=== PATIENT | female | born 1995 | race American Indian/Alaskan Native ===

== ENCOUNTER 2018-12-06 16:08 | Emergency (ER) | payer SELFPAY ==
[2018-12-06] MEDS ORDERED: NACL 0.9% 1000 ML 1,000 ML IV ONE (16:25)
[2018-12-06] MEDS ORDERED: ZOFRAN IV ONE (16:25)
[2018-12-06] MEDS ORDERED: MORPHINE IV ONE (16:25)
--- NOTE | 2018-12-06 16:38 | Emergency Department Report ---
ED Female HPI - General Stated complaint: 13 WEEKS Time Seen by Provider: 12/06/18 16:21 - History of Present Illness Initial comments: Ms. Billingsley is a 23 yo who is approximately 13 weeks according to LMP September. She had the sudden onset of vaginal bleeding and pelvic cramping. Severe suprapubic pain. No radiation. Constant. Complaint: vaginal bleeding -: Sudden, minutes(s) (30) Severity: severe Quality: sharp Consistency: constant Improves with: none Worsens with: none Are you Now?: Yes Associated Symptoms: vaginal bleeding - Related Data Sexually active: Yes : 1 Para: 0 A: 0 Previous Rx's Medication Instructions Recorded Last Taken Type Ibuprofen [Motrin 800 MG tab] 800 mg PO Q8HR PRN #15 tablet 12/06/18 Unknown Rx Allergies Allergy/AdvReac Type Severity Reaction Status Date / Time No Known Allergies Allergy Verified 12/06/18 16:25 ED Review of Systems ROS: Stated complaint: 13 WEEKS Other details as noted in HPI Comment: All other systems reviewed and negative Constitutional: denies: fever, malaise Gastrointestinal: abdominal pain Genitourinary: denies: urgency ED Past Medical Hx - Past Medical History Previous Medical History?: No - Surgical History Past Surgical History?: No - Social History Smoking Status: Current Every Day Smoker - Medications Home Medications: Home Medications Medication Instructions Recorded Confirmed Last Taken Type Ibuprofen [Motrin 800 MG tab] 800 mg PO Q8HR PRN #15 tablet 12/06/18 Unknown Rx ED Physical Exam - General General appearance: alert, in no apparent distress, other (appears in pain) - Head Head exam: Present: atraumatic, normocephalic - Eye Eye exam: Present: normal appearance - ENT ENT exam: Present: mucous membranes moist - Neck Neck exam: Present: normal inspection, full ROM - Respiratory Respiratory exam: Present: normal lung sounds bilaterally. Absent: respiratory distress, wheezes, rales, rhonchi - Cardiovascular Cardiovascular Exam: Present: regular rate, normal rhythm, normal heart sounds. Absent: systolic murmur, diastolic murmur, rubs, gallop - GI/Abdominal GI/Abdominal exam: Present: soft, normal bowel sounds. Absent: distended, tenderness, guarding, rebound - Extremities Exam Extremities exam: Present: normal inspection - Back Exam Back exam: Present: normal inspection - Neurological Exam Neurological exam: Present: alert, oriented X3 - Psychiatric Psychiatric exam: Present: normal affect, normal mood - Skin Skin exam: Present: warm, dry, intact, normal color. Absent: rash ED Course Vital Signs 12/06/18 12/06/18 16:25 17:06 Temperature 98.4 F 98 F Pulse Rate 56 L 64 Respiratory 16 16 Rate Blood Pressure 144/84 Blood Pressure 125/94 [Right] O2 Sat by Pulse 99 98 Oximetry ED Medical Decision Making - Lab Data Result diagrams: 12/06/18 17:07 12/06/18 17:07 Laboratory Results - last 24 hr 12/06/18 12/06/18 12/06/18 17:05 17:07 17:07 WBC 7.2 RBC 4.91 Hgb 14.0 Hct 41.5 MCV 85 MCH 29 MCHC 34 RDW 14.7 Plt Count 335 Lymph % (Auto) 30.2 [place] % (Auto) 5.8 Eos % (Auto) 5.7 H Baso % (Auto) 0.5 Lymph # 2.2 [place] # 0.4 Eos # 0.4 Baso # 0.0 Seg Neutrophils % 57.8 Seg Neutrophils # 4.2 Sodium 138 Potassium 4.7 Chloride 101.2 Carbon Dioxide 23 Anion Gap 19 BUN 10 Creatinine 0.6 L Estimated GFR > 60 BUN/Creatinine Ratio 17 Glucose 83 Calcium 9.3 HCG, Quant Blood Type A POSITIVE 12/06/18 17:07 WBC RBC Hgb Hct MCV MCH MCHC RDW Plt Count Lymph % (Auto) [place] % (Auto) Eos % (Auto) Baso % (Auto) Lymph # [place] # Eos # Baso # Seg Neutrophils % Seg Neutrophils # Sodium Potassium Chloride Carbon Dioxide Anion Gap BUN Creatinine Estimated GFR BUN/Creatinine Ratio Glucose Calcium HCG, Quant < 2 Blood Type - Radiology Data Radiology results: image reviewed - Medical Decision Making Ms. Billingsley presents with dysmenorrhea. No evidence of according to ultrasound or serum studies. dc'd home with prescription for Ibuprofen Critical care attestation.: If time is entered above; I have spent that time in minutes in the direct care of this critically ill patient, excluding procedure time. ED Disposition Clinical Impression: Dysmenorrhea Disposition: DC-01 TO HOME OR SELFCARE Is pt being admited?: No Does the pt Need Aspirin: No Condition: Stable Instructions: Dysmenorrhea (ED) Prescriptions: Ibuprofen [Motrin 800 MG tab] 800 mg PO Q8HR PRN #15 tablet PRN Reason: Pain , Severe (7-10)
[2018-12-06 17:14] VITALS: BP 125/94
[2018-12-06 17:24] LABS: Basophils % (Auto) 0.5 % (0.0-1.8); Eosinophils # (Auto) 0.4 K/mm3 (0.0-0.4); Eosinophils % (Auto) 5.7 % (0.0-4.3); Hematocrit 41.5 % (30.3-42.9); Lymphocytes # (Auto) 2.2 K/mm3 (1.2-5.4); Lymphocytes % (Auto) 30.2 % (13.4-35.0); Mean Corpuscular HGB Conc 34 % (30-34); Mean Corpuscular Volume 85 fl (79-97); Monocytes # (Auto) 0.4 K/mm3 (0.0-0.8); Monocytes % (Auto) 5.8 % (0.0-7.3); Platelet Count 335 K/mm3 (140-440); Red Blood Count 4.91 M/mm3 (3.65-5.03); Red Cell Distribution Width 14.7 % (13.2-15.2)
[2018-12-06 17:55] LABS: BUN/Creatinine Ratio 17; Blood Urea Nitrogen 10 mg/dL (7-17); Calcium 9.3 mg/dL (8.4-10.2); Hemolysis Index 99
--- NOTE | 2018-12-06 20:27 | Ultrasound Report ---
PROCEDURE: US PELVIC COMPLETE TECHNIQUE: Transabdominal and endovaginal pelvic ultrasound HISTORY: Vaginal bleeding COMPARISONS: No priors FINDINGS: The uterus measures approximately 10.7 cm longitudinally. The endometrium somewhat poorly defined and mildly thickened measuring approximately 1.1 cm in diamet er. Poor definition of the interface between the endometrium and myometrium and mild heterogeneity of the myometrium, nonspecific and may be seen with adenomyosis. No discrete fibroids are identified. Right ovary is normal in contour and echotexture. Left ovary normal in contour. Follicular cyst in the left ovary measuring approximately 1 cm. Ovarian vascularity demonstrated bilaterally. No fluid is seen in the pelvic cul-de-sac. No evidence of adnexal masses. IMPRESSION: Mildly thickened endometrium with poor definition of the interface between the endometrium and myomet rium and mild heterogeneity of the myometrium, nonspecific and which may reflect adenomyosis. Consider further evaluation with MRI. No discrete fibroids are identified. 1 cm follicular cyst in the left ovary. No adnexal masses.. This document is electronically signed by Wander Figueroa MD., December 06 2018 08:24:45 PM ET
== END 2018-12-06 20:37 | disposition home or self-care (01) ==
LOC: ED 16:08
DX: O20.9 Hemorrhage in early pregnancy, unspecified (principal); N94.6 Dysmenorrhea, unspecified; F17.200 Nicotine dependence, unspecified, uncomplicated; Z3A.12 12 weeks gestation of pregnancy
CPT/HCPCS: 36415; 76830; 76856; 80048; 84702; 85025; 86900; 86901; 96374; 96375; 99285; J2270; J2405; J7030

== ENCOUNTER 2019-05-07 14:21 | Emergency (ER) | payer SELFPAY ==
--- NOTE | 2019-05-07 15:23 | Emergency Department Report ---
Blank Doc - Documentation Documentation: 23-year-old female that presents with abdominal pain with n/v. This initial assessment/diagnostic orders/clinical plan/treatment(s) is/are subject to change based on patient's health status, clinical progression and re- assessment by fellow clinical providers in the ED. Further treatment and workup at subsequent clinical providers discretion. Patient/guardians urged not to elope from the ED as their condition may be serious if not clinically assessed and managed. Initial orders include: 1- Patient sent to [facility] for further evaluation and treatment 2- labs 3- UA
[2019-05-07 15:25] VITALS: BP 118/65
[2019-05-07 16:06] LABS: Basophils % (Auto) 0.6 % (0.0-1.8); Eosinophils # (Auto) 0.4 K/mm3 (0.0-0.4); Eosinophils % (Auto) 6.9 % (0.0-4.3); Hematocrit 36.6 % (30.3-42.9); Hemoglobin 11.7 gm/dl (10.1-14.3); Lymphocytes # (Auto) 1.7 K/mm3 (1.2-5.4); Lymphocytes % (Auto) 29.4 % (13.4-35.0); Mean Corpuscular HGB Conc 32 % (30-34); Mean Corpuscular Volume 83 fl (79-97); Monocytes # (Auto) 0.5 K/mm3 (0.0-0.8); Monocytes % (Auto) 8.2 % (0.0-7.3); Platelet Count 375 K/mm3 (140-440); Red Cell Distribution Width 15.6 % (13.2-15.2)
[2019-05-07 16:27] LABS: Alanine Aminotransferase 7 units/L (7-56); Albumin 3.9 g/dL (3.9-5); BUN/Creatinine Ratio 18; Blood Urea Nitrogen 14 mg/dL (7-17); Calcium 9.2 mg/dL (8.4-10.2); Hemolysis Index 31
== END 2019-05-07 18:16 | disposition left against medical advice (07) ==
LOC: ED 14:21
DX: R11.2 Nausea with vomiting, unspecified (principal); Z53.21 Procedure and treatment not carried out due to patient leaving prior to being seen by health care provider
CPT/HCPCS: 36415; 80053; 83690; 84703; 85025

== ENCOUNTER 2020-08-25 15:09 | Emergency (ER) | payer SELFPAY | END 2020-08-25 16:55 | disposition left against medical advice (07) | LOC: ED 15:09 | DX: Z00.8 Encounter for other general examination (principal); Z53.21 Procedure and treatment not carried out due to patient leaving prior to being seen by health care provider ==

== ENCOUNTER 2020-12-31 15:34 | Emergency (ER) | payer SELFPAY ==
[2020-12-31 17:05] VITALS: BP 132/72
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
[2020-12-31 18:56] LABS: Basophils % (Auto) 0.3 % (0.0-1.8); Eosinophils # (Auto) 0.8 K/mm3 (0.0-0.4); Eosinophils % (Auto) 10.6 % (0.0-4.3); Hematocrit 30.1 % (30.3-42.9); Hemoglobin 9.6 gm/dl (10.1-14.3); Lymphocytes # (Auto) 2.1 K/mm3 (1.2-5.4); Lymphocytes % (Auto) 28.1 % (13.4-35.0); Mean Corpuscular HGB Conc 32 % (30-34); Mean Corpuscular Volume 79 fl (79-97); Monocytes # (Auto) 0.5 K/mm3 (0.0-0.8); Monocytes % (Auto) 6.8 % (0.0-7.3); Platelet Count 347 K/mm3 (140-440)
[2020-12-31 19:13] LABS: Alanine Aminotransferase 12 units/L (7-56); Albumin 3.6 g/dL (3.9-5); BUN/Creatinine Ratio 21; Blood Urea Nitrogen 17 mg/dL (7-17); Calcium 9.3 mg/dL (8.4-10.2); Hemolysis Index 34
== END 2020-12-31 17:09 | disposition left against medical advice (07) ==
LOC: ED 15:34
DX: H57.89 Other specified disorders of eye and adnexa (principal); Z53.21 Procedure and treatment not carried out due to patient leaving prior to being seen by health care provider
CPT/HCPCS: 36415; 80053; 80320; 83690; 84703; 85025; G0480

== ENCOUNTER 2021-08-12 20:38 | Inpatient (IN) | payer SELFPAY ==
[2021-08-12] MEDS ORDERED: SODIUM CHLORIDE 0.9% 1000 ML 1,000 ML IV ONE (22:09)
--- NOTE | 2021-08-12 22:11 | Emergency Department Report ---
HPI - General Chief Complaint: Vaginal Bleeding Time Seen by Provider: 08/12/21 21:44 - HPI HPI: 26-year-old female with no known past medical history presents complaining of 1 week of suprapubic abdominal pain and distension as well as 2 days of i ntense vaginal bleeding. The patient says she is unsure whether she is . Her last menstrual period was approximately 1 month ago. She is sexually active and uses barrier protection but not all the time. She states that approximate 1 week ago she began to experience dull suprapubic abdominal pain which became constant over the past week and with occasional associated cramping. She also says over that period of time her abdomen has become significantly more distended. For the past 2 days she has had vaginal bleeding and says she is using approximately 1 pad per hour. She states that she normally does not have cramps associated with her menstrual period. Patient says she took 8 Tylenol pills over the course of the day today and has been taking "a lot" of Tylenol over the past week due to the abdominal pain. She does not know the dose and is unable to provide account of when these pills were taken. She denies any associated headache, vision change, neck pain, chest pain, shortness of breath, cough, fever, chills, nausea/vomiting, dysuria, diarrhea, constipation, dark tarry stools, or any other associated complaints. ED Past Medical Hx - Past Medical History Previous Medical History?: No - Social History Smoking Status: Never Smoker Substance Use Type: None - Medications Home Medications: Home Medications Medication Instructions Recorded Confirmed Last Taken Type Sulfamethoxazole/Trimethoprim 1 each PO BID #10 tablet 11/29/19 08/14/21 Unknown Rx [Bactrim DS TAB] ED Review of Systems ROS: Stated complaint: ABD PAIN Other details as noted in HPI Comment: All other systems reviewed and negative Constitutional: denies: chills, fever Eyes: denies: eye pain, vision change ENT: denies: throat pain, congestion Respiratory: denies: cough, shortness of breath Cardiovascular: denies: chest pain, palpitations, syncope Gastrointestinal: abdominal pain. denies: nausea, vomiting, diarrhea, constipation Genitourinary: other (vaginal bleeding). denies: dysuria, frequency, discharge Musculoskeletal: denies: back pain, arthralgia Skin: denies: rash, lesions Neurological: denies: headache, weakness, numbness, paresthesias Hematological/Lymphatic: denies: easy bleeding Physical Exam - Physical Exam Vital Signs: Vital Signs 08/12/21 21:16 Temperature 98.8 F Pulse Rate 94 H Respiratory 16 Rate Blood Pressure 117/72 [Right] O2 Sat by Pulse 100 Oximetry Physical Exam: GENERAL: Well developed and well nourished. Disheveled. In mild distress secondary to pain. HEAD: Normocephalic. No obvious signs of trauma. ENT: Dry mucous membranes. EYES: Extraocular movements are intact. Pupils are equal round and reactive to light bilaterally NECK: Supple. Full ROM is intact. Trachea is midline. LUNGS: Nonlabored breathing. Equal chest rise bilaterally. Clear to auscultation bilaterally. CARDIOVASCULAR: Regular rate and rhythm. No murmurs or rubs. VASCULAR: Cap refill < 2 seconds ABDOMEN: Abdomen is significantly distended but soft. There is tenderness noted on palpation of the right upper quadrant > right lower quadrant without guarding or rebound tenderness. There is also suprapubic tenderness noted. GENITOURINARY: Pelvic exam performed with medic Wendi present as tire man. External genitalia are normal in appearance. No lesions/rashes. There is scant blood and clots noted in the posterior fornix. No lacerations noted. No significant discharge. The os is closed and there is very scant bleeding coming from the os. Bimanual exam reveals no cervical motion tenderness. There are no significant adnexal masses or tenderness. SKIN: Skin is warm and dry NEURO: Patient is awake, alert, and oriented. regional economic liaison II-XII grossly intact. No focal deficits. Normal motor and sensory exam throughout. Normal speech. MUSCULOSKELETAL: No obvious deformities. No significant tenderness. Normal ROM throughout. BACK/SPINE: No midline tenderness or step-offs of the C/T/L spine. No costovertebral angle tenderness. ED Course Vital Signs 08/12/21 21:16 Temperature 98.8 F Pulse Rate 94 H Respiratory 16 Rate Blood Pressure 117/72 [Right] O2 Sat by Pulse 100 Oximetry ED Medical Decision Making - Lab Data Result diagrams: 08/12/21 21:55 08/12/21 21:55 Labs 08/12/21 08/12/21 08/12/21 21:55 21:55 21:55 WBC 19.2 H RBC 3.92 Hgb 9.5 L Hct 30.8 MCV 79 MCH 24 L MCHC 31 RDW 15.9 H Plt Count 501 H Lymph % (Auto) 6.4 L [place] % (Auto) 7.8 H Eos % (Auto) 0.1 Baso % (Auto) 0.2 Lymph # (Auto) 1.2 [place] # (Auto) 1.5 H Eos # (Auto) 0.0 Baso # (Auto) 0.0 Seg Neutrophils % 85.5 H Seg Neutrophils # 16.5 H PT INR APTT Sodium 128 L Potassium 4.0 Chloride 91.7 L Carbon Dioxide 19 L Anion Gap 21 BUN 10 Creatinine 0.7 Estimated GFR > 60 BUN/Creatinine Ratio 14 Glucose 99 Calcium 8.4 Magnesium Total Bilirubin Direct Bilirubin Indirect Bilirubin AST ALT Alkaline Phosphatase Troponin T NT-Pro-B Natriuret Pep Total Protein Albumin Albumin/Globulin Ratio Lipase HCG, Quant < 2 Salicylates Acetaminophen Plasma/Serum Alcohol 08/12/21 08/12/21 08/12/21 22:19 22:19 22:19 WBC RBC Hgb Hct MCV MCH MCHC RDW Plt Count Lymph % (Auto) [place] % (Auto) Eos % (Auto) Baso % (Auto) Lymph # (Auto) [place] # (Auto) Eos # (Auto) Baso # (Auto) Seg Neutrophils % Seg Neutrophils # PT 15.6 H INR 1.12 APTT 41.0 H Sodium Potassium Chloride Carbon Dioxide Anion Gap BUN Creatinine Estimated GFR BUN/Creatinine Ratio Glucose Calcium Magnesium Total Bilirubin 0.50 Direct Bilirubin < 0.2 Indirect Bilirubin 0.3 AST 20 ALT 8 Alkaline Phosphatase 87 Troponin T NT-Pro-B Natriuret Pep Total Protein 8.7 H Albumin 3.9 Albumin/Globulin Ratio 0.8 Lipase 13 HCG, Quant Salicylates < 0.3 L Acetaminophen Plasma/Serum Alcohol 08/12/21 08/12/21 08/13/21 22:19 22:19 00:43 WBC RBC Hgb Hct MCV MCH MCHC RDW Plt Count Lymph % (Auto) [place] % (Auto) Eos % (Auto) Baso % (Auto) Lymph # (Auto) [place] # (Auto) Eos # (Auto) Baso # (Auto) Seg Neutrophils % Seg Neutrophils # PT INR APTT Sodium Potassium Chloride Carbon Dioxide Anion Gap BUN Creatinine Estimated GFR BUN/Creatinine Ratio Glucose Calcium Magnesium 2.20 Total Bilirubin Direct Bilirubin Indirect Bilirubin AST ALT Alkaline Phosphatase Troponin T < 0.010 NT-Pro-B Natriuret Pep 58.92 Total Protein Albumin Albumin/Globulin Ratio Lipase HCG, Quant Salicylates Acetaminophen 5.0 L Plasma/Serum Alcohol < 0.01 - Radiology Data Radiology results: report reviewed - Medical Decision Making 26-year-old female presenting with 1 week of suprapubic pain/cramping with distension and 2 days of vaginal bleeding at a rate of 1 pad per hour. On initial assessment she is afebrile with normal vital signs. Patient also reports that she has been taking "a lot" of Tylenol over the past week. On physical examination she has dry mucous membranes and appears disheveled. Her abdomen is distended but soft but with tenderness to palpation of the right upper quadrant right lower quadrant without guarding/rebound or CVA tenderness. Pelvic examination performed with tire man present reveals only mild bleeding from the cervical os which is closed. We will perform broad work-up with a full set of labs including Tylenol/salicylate/LFTs and coags. We will also order right upper quadrant and transvaginal ultrasound to assess for evidence of cholelithiasis/cholecystitis versus ectopic versus ovarian torsion versus ovarian cyst versus uterine fibroids versus other abnormality to explain the patient's presentation. If the test is negative we will plan to obtain CT of the abdomen pelvis given her significant tenderness on exam. We will give 1 L of IV fluids for now. Labs reveal leukocytosis with white blood cell count of 19.2. Hemoglobin is 9.5 and review of prior medical records reveals this is her baseline. Given significant leukocytosis will send blood cultures and give an additional 1 L of IV fluids. Chemistry panel reveals normal kidney function and hyponatremia with sodium of 128. Acetaminophen level is 5 revealing no signs of toxicity. Salicylates are negative. Alcohol is negative. Coags are not significantly abnormal. test is negative. I have ordered CT of the abdomen pelvis. On repeat assessment, patient reports significant suprapubic pain for which I will order Dilaudid. Right upper quadrant ultrasound reveals cholelithiasis without evidence of cholecystitis. I spoke with the radiologist regarding the findings of the pelvic ultrasound as well as the CT of the abdomen pelvis. 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 We will discuss promptly with [facility] I discussed the case with Dr. Grover of [facility] at 1:03 PM. He reports that given the size of the fibroid and the management of this condition which requires hysterectomy, he does not feel comfortable admitting this patient at this time given the possibility of bleeding or other complication during surgery which he feels requires [facility] WORK[facility]/ONC. Will speak with transfer center regarding transfer to another facility. I discussed the diagnostic results as well as the plan of care with the patient expressed understanding and agreement. Urinalysis reveals findings consistent with UTI. Given significant leukocytosis broad-spectrum IV cefepime has been ordered. We spoke with multiple facilities regarding transfer but we were unable to find a facility with the necessary service and bed availability. I did speak with [facility] WORK[facility]/ONC physician from [facility] who stated that benign gynecology can handle this case and I was then connected with Dr. Vásquez at 2:55 PM from the same facility. He reports that he does not feel this condition requires transfer or constitutes an emergency. I asked him to speak directly with Dr. Grover of [facility] at our facility to facilitate transfer. I followed up with Dr. Grover who reports that after extensive discussion with [place] [facility] PR[facility] OPERATOR, he no longer feels that this condition requires transfer and will instead admit the patient to his service here. He is spoken with the patient who is in agreement with this plan of care Critical Care Time: Yes Critical care time in (mins) excluding proc time.: 60 Critical care attestation.: If time is entered above; I have spent that time in minutes in the direct care of this critically ill patient, excluding procedure time. Critical care time was spent in the evaluation/assessment, work-up, and management of coronaries degeneration of massive fibroid with vaginal bleeding and abdominal distention requiring extensive discussion with multiple specialist and transfer center as well as very frequent reevaluation and reassessment. ED Disposition Clinical Impression: Leiomyoma of uterus, Bulky or enlarged uterus, Pelvic pain, Vaginal bleeding, UTI (urinary tract infection) Disposition: 09 ADMITTED INPATIENT Is pt being admited?: Yes
[2021-08-12 22:32] LABS: Blood Urea Nitrogen 10 mg/dL (7-17); Calcium 8.4 mg/dL (8.4-10.2); Hemolysis Index 0
[2021-08-12 22:34] LABS: BUN/Creatinine Ratio 14
[2021-08-12 22:45] LABS: Basophils % (Auto) 0.2 % (0.0-1.8); Eosinophils % (Auto) 0.1 % (0.0-4.3); Hematocrit 30.8 % (30.3-42.9); Hemoglobin 9.5 gm/dl (10.1-14.3); Lymphocytes # (Auto) 1.2 K/mm3 (1.2-5.4); Lymphocytes % (Auto) 6.4 % (13.4-35.0); Mean Corpuscular HGB Conc 31 % (30-34); Mean Corpuscular Volume 79 fl (79-97); Monocytes # (Auto) 1.5 K/mm3 (0.0-0.8); Monocytes % (Auto) 7.8 % (0.0-7.3); Platelet Count 501 K/mm3 (140-440); Red Blood Count 3.92 M/mm3 (3.65-5.03); Red Cell Distribution Width 15.9 % (13.2-15.2)
[2021-08-12 22:59] LABS: INR 1.12 (0.87-1.13)
[2021-08-12 23:03] LABS: Alanine Aminotransferase 8 units/L (7-56); Albumin 3.9 g/dL (3.9-5)
[2021-08-12 23:18] LABS: Bilirubin,Direct < 0.2 mg/dL (0-0.2)
[2021-08-13] MEDS ORDERED: SODIUM CHLORIDE 0.9% 1000 ML 1,000 ML IV ONE (00:11)
[2021-08-13] MEDS ORDERED: HYDROmorphone 1 MG/1 ML INJ IV ONE (00:12)
[2021-08-13] MEDS ORDERED: ONDANSETRON 4 MG/2 ML INJ IV ONE (00:12)
--- NOTE | 2021-08-13 00:50 | Cat Scan Report ---
CT ABDOMEN AND PELVIS WITH CONTRAST INDICATION / CLINICAL INFORMATION: R.U.Q. and R.L.Q. tenderness and distension. TECHNIQUE: Axial CT images were obtained through the abdomen and pelvis after 100 cc Omnipaque [address] scans at this location are performed using CT dose reduction for ALARA by means of automated exposure control. COMPARISON: Pelvic ultrasound 08/12/2021 CT of the abdomen and pelvis 09/15/2019 FINDINGS: LOWER CHEST: No significant abnormality of the imaged chest. LIVER: Hypoattenuation in segment IV thought to reflect focal fat. GALLBLADDER: Multiple small cholesterol gallstones. No wall thickening. BILE DUCTS: No significant abnormality. SPLEEN: No significant abnormality. PANCREAS: No significant abnormality. ADRENALS: No significant abnormality. RIGHT KIDNEY / URETER: Minimal hydronephrosis. LEFT KIDNEY / URETER: Minimal hydronephrosis. STOMACH / DUODENUM / SMALL BOWEL: No significant abnormality. COLON: No significant abnormality. APPENDIX: Not clearly identified. No inflammatory changes within the right lower quadrant. PERITONEUM: No free air or free fluid are present within the abdomen or pelvis. LYMPH NODES: No significant adenopathy. AORTA / ARTERIES: No significant abnormality. IVC / VEINS: Incidental note made of left common iliac vein compression secondary to overlying right common iliac artery. URINARY BLADDER: Bladder is slightly displaced to the right secondary to large cystic ovarian fibroid . REPRODUCTIVE ORGANS: The previously demonstrated ovarian fibroid has increased in size with increased central hypoattenuating component now measuring 11.6 x 11.9 x 15.3 cm. Size within the right lateral myometrium. Minimal enlargement left ovary with small cysts. The left gonadal vein is well opacified . Similarly, the right ovary and canal remain demonstrate normal enhancement and opacification. No fi ndings to suggest ovarian torsion. ADDITIONAL ABDOMINAL/PELVIC FINDINGS: None. SKELETAL SYSTEM: No significant abnormality. IMPRESSION: 1. Interval increase in size of uterine fibroid. While less common in a non patient, the appe arance on ultrasound suggests this could reflect carneous degeneration of uterine fibroid, MRI recomm ended for further evaluation. No evidence of infection. 2. Cholesterol gallstones without CT evidence of acute cholecystitis. Minimal change in focal hypoatt enuation within segment IV of the liver thought to reflect focal fat. Signer Name: Jose Dodge II, MD Signed: 08/13/2021 12:46 AM Workstation Name: [id number]
--- NOTE | 2021-08-13 00:53 | Ultrasound Report ---
ULTRASOUND PELVIS INDICATION / CLINICAL INFORMATION: vaginal bleeding + RLQ tenderness. TECHNIQUE: Transabdominal. Duplex Color Doppler used: Yes. COMPARISON: CT of abdomen and pelvis performed same date. FINDINGS: UTERUS: The uterus is diffusely enlarged. Corresponding to the hypoattenuating lesion demonstrated on comparison CT, there is a round lesion with heterogeneous mixed attenuation internally with no signi ficant internal color flow. This lesion has slightly increased in size since comparison CT performed 09/15/2019. RIGHT ADNEXA: Right ovary is normal in size measuring 3.2 x 2.9 x 3.5 cm. Normal color Doppler blood flow. LEFT ADNEXA: Left ovary measures 3.9 x 2.1 x 2.7 cm. Normal color Doppler blood flow. URINARY BLADDER: Not well-visualized secondary to size of uterus. FREE FLUID: None. ADDITIONAL FINDINGS: None. IMPRESSION: 1. The appearance of the uterine fibroids suggest possible carneus degeneration of prior uterine fibr oid. 2. No evidence of ovarian torsion. Signer Name: Jose Dodge II, MD Signed: 08/13/2021 12:48 AM Workstation Name: [id number]
--- NOTE | 2021-08-13 00:55 | Ultrasound Report ---
ULTRASOUND ABDOMEN, LIMITED INDICATION / CLINICAL INFORMATION: RUQ tenderness. COMPARISON: CT of abdomen and pelvis same date. Pelvic ultrasound same date. FINDINGS: PANCREAS: Visualized portion shows no significant abnormality. LIVER: No significant abnormality. Right hepatic lobe measures 14.9 cm. Normal hepatopedal blood flow in the main portal vein. GALLBLADDER: Multiple gallstones. Nonthickened gallbladder wall. BILE DUCTS: No significant abnormality. Common bile duct measures 2.0 mm. FREE FLUID: None. ADDITIONAL FINDINGS: Minimal hydronephrosis of the right kidney. IMPRESSION: 1. Cholelithiasis. No ultrasound evidence of cholecystitis. Signer Name: Jose Dodge II, MD Signed: 08/13/2021 12:50 AM Workstation Name: [id number]
[2021-08-13] MEDS ORDERED: CEFEPIME/NS 2 GM/100 ML 2 GM/100 ML BAG IV ONE (01:48)
[2021-08-13 02:08] LABS: Bilirubin,Urine NEG (Negative); Blood,Urine LG (Negative); Color,Urine Yellow (Yellow); Mucus,Urine FEW /HPF
[2021-08-13 02:14] LABS: Benzodiazepines Screen,Urine PRESUMPTIVE NEGATIVE; Cannabinoid Screen,Urine PRESUMPTIVE NEGATIVE; Cocaine Screen,Urine PRESUMPTIVE POSITIVE; Methadone Screen,Urine PRESUMPTIVE NEGATIVE; Opiate Screen,Urine PRESUMPTIVE NEGATIVE
[2021-08-13 03:25] LABS: Amphetamine Screen,Urine Positive
[2021-08-13] MEDS ORDERED: LACTATED RINGERS 1,000 ML IV SCH ×2 (05:15→17:30)
--- NOTE | 2021-08-13 05:32 | History and Physical Report ---
History of Present Illness Date of examination: 08/13/21 Date of admission: 08/13/2021 Chief complaint: Pelvic pain History of present illness: 26 y/o G0 presents to ED reporting sudden onset sharp pelvic pain that started 1 week ago. She is currently on her menses. In ED, pelvic US and CT abdomen/pelvis was performed. Those tests showed a 15 cm uterine mass with suspected carneous degeneration, and MRI recommended. 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 Family/Genetic History: none Social history: smoking Medications and Allergies Allergies Allergy/AdvReac Type Severity Reaction Status Date / Time No Known Allergies Allergy Verified 11/29/19 08:09 Home Medications Medication Instructions Recorded Confirmed Last Taken Type Sulfamethoxazole/Trimethoprim 1 each PO BID #10 tablet 11/29/19 Unknown Rx [Bactrim DS TAB] Active Meds: Active Medications Acetaminophen (Acetaminophen 325 Mg Tab) 650 mg PO Q4H PRN PRN Reason: Pain MILD(1-3)/Fever >100.5/GONZALES Lactated Ringer's (Lactated Ringers) 1,000 mls @ 75 mls/hr IV DIRECT KLAUDIA Sodium Chloride (Sodium Chloride 0.9% 10 Ml Flush Syringe) 10 ml IV PRN PRN PRN Reason: LINE FLUSH Review of Systems All systems: negative - Vital Signs Vital signs: Vital Signs Temp Pulse Resp BP Pulse Ox 98.8 F 94 H 16 117/72 100 08/12/21 21:16 08/12/21 21:16 08/12/21 21:16 08/12/21 21:16 08/12/21 21:16 Temp Pulse Resp BP Pulse Ox 99.4 F 105 H 19 131/72 100 08/13/21 02:25 08/13/21 05:01 08/13/21 05:01 08/13/21 05:01 08/13/21 05:01 - Physical Exam Breasts: Positive: normal Cardiovascular: Regular rate Lungs: Positive: Normal air movement Abdomen: Positive: distention Genitourinary (Female): Positive: normal perenium Vulva: both: normal Vagina: Positive: normal moisture Uterus: Positive: enlarged Anus/Rectum: Positive: normal perianal skin Extremities: Positive: normal Deep Tendon Reflex Grade: Normal +2 Results Result Diagrams: 08/12/21 21:55 08/12/21 21:55 Abnormal lab results 08/12/21 08/12/21 08/12/21 Range/Units 21:55 21:55 22:19 WBC 19.2 H (4.5-11.0) K/mm3 Hgb 9.5 L (10.1-14.3) gm/dl MCH 24 L (28-32) pg RDW 15.9 H (13.2-15.2) % Plt Count 501 H (140-440) K/mm3 Lymph % (Auto) 6.4 L (13.4-35.0) % [place] % (Auto) 7.8 H (0.0-7.3) % [place] # (Auto) 1.5 H (0.0-0.8) K/mm3 Seg Neutrophils % 85.5 H (40.0-70.0) % Seg Neutrophils # 16.5 H (1.8-7.7) K/mm3 PT 15.6 H (12.2-14.9) Sec. APTT 41.0 H (24.2-36.6) Sec. Sodium 128 L (137-145) mmol/L Chloride 91.7 L (98-107) mmol/L Carbon Dioxide 19 L (22-30) mmol/L Total Protein (6.3-8.2) g/dL Ur Specific [place] (1.003-1.030) Urine WBC (Auto) (0.0-6.0) /HPF Salicylates (2.8-20.0) mg/dL Acetaminophen (10.0-30.0) ug/mL 08/12/21 08/12/21 08/12/21 Range/Units 22:19 22:19 22:19 WBC (4.5-11.0) K/mm3 Hgb (10.1-14.3) gm/dl MCH (28-32) pg RDW (13.2-15.2) % Plt Count (140-440) K/mm3 Lymph % (Auto) (13.4-35.0) % [place] % (Auto) (0.0-7.3) % [place] # (Auto) (0.0-0.8) K/mm3 Seg Neutrophils % (40.0-70.0) % Seg Neutrophils # (1.8-7.7) K/mm3 PT (12.2-14.9) Sec. APTT (24.2-36.6) Sec. Sodium (137-145) mmol/L Chloride (98-107) mmol/L Carbon Dioxide (22-30) mmol/L Total Protein 8.7 H (6.3-8.2) g/dL Ur Specific [place] (1.003-1.030) Urine WBC (Auto) (0.0-6.0) /HPF Salicylates < 0.3 L (2.8-20.0) mg/dL Acetaminophen 5.0 L (10.0-30.0) ug/mL 08/13/21 Range/Units Unknown WBC (4.5-11.0) K/mm3 Hgb (10.1-14.3) gm/dl MCH (28-32) pg RDW (13.2-15.2) % Plt Count (140-440) K/mm3 Lymph % (Auto) (13.4-35.0) % [place] % (Auto) (0.0-7.3) % [place] # (Auto) (0.0-0.8) K/mm3 Seg Neutrophils % (40.0-70.0) % Seg Neutrophils # (1.8-7.7) K/mm3 PT (12.2-14.9) Sec. APTT (24.2-36.6) Sec. Sodium (137-145) mmol/L Chloride (98-107) mmol/L Carbon Dioxide (22-30) mmol/L Total Protein (6.3-8.2) g/dL Ur Specific [place] 1.045 H (1.003-1.030) Urine WBC (Auto) 24.0 H (0.0-6.0) /HPF Salicylates (2.8-20.0) mg/dL Acetaminophen (10.0-30.0) ug/mL All other labs normal. Ultrasound: report reviewed CT scan - abdomen: report reviewed CT scan - pelvis: report reviewed Assessment and Plan - Patient Problems (1) Bulky or enlarged uterus Current Visit: Yes Status: Acute Plan to address problem: 15 cm uterine mass noted. Suspect leiomyoma, but leiomyosarcoma is not ruled out secondary to possible rapid growth. [facility]AP[facility]IVE [facility]OLER INSTALLER-Oncology at [place] consulted via [facility] and declined acceptance of patient. EVAPORATIVE COOLER INSTALLER-Oncology at [facility] (Dr. Rico) consulted and agreed to accept patient, but there are no beds available at [facility] at this time. Admit to [facility]APORATIVE COOLER INSTALLER service. MRI pelvis ordered per radiology recommendation. (2) Pelvic pain Current Visit: Yes Status: Acute Plan to address problem: Rx Morphine 2 mg IVP prn pain.
[2021-08-13] MEDS ORDERED: levoFLOXacin 500 MG TAB PO ONE (05:43)
[2021-08-13] MEDS ORDERED: MORPHINE 2 MG/1 ML INJ ONE (05:49)
[2021-08-13] MEDS: MORPHINE 2 MG/1 ML INJ IV PRN ×4 (05:57→20:28)
[2021-08-13] MEDS ORDERED: KETOROLAC 30 MG/1 ML INJ IV SCH (08:00)
[2021-08-13] MEDS ORDERED: oxyCODONE /ACETAMINOPHEN 5-325MG TAB PO ONE (11:33)
[2021-08-13] MEDS: KETOROLAC 30 MG/1 ML INJ IV SCH (13:28)
--- NOTE | 2021-08-13 15:23 | Progress Note ---
Assessment and Plan Patient with large uterine mass on U/S, MRI recommended for further evaluation, but patient unable to complete secondary to pain. Discussed modifications to pain medication and patient agreeable to repeating scan. Toradol 15 mg q6 for 24 hrs; Morphine 2 mg q4 hrs for pain control Will transition to ibuprofen following 24 hrs Regular Diet Further management to be deferred to admitting [facility] team - Patient Problems (1) Bulky or enlarged uterus Current Visit: Yes Status: Acute (2) Pelvic pain Current Visit: Yes Status: Acute Subjective - Subjective Date of service: 08/13/21 Principal diagnosis: abdominal pain, pelvic mass Interval history: Patient is a 26 yo G0 admitted with abdominal pain and pelvic mass. Asleep, but easily aroused. Notes continued abdominal pain, but it is improved. Currently rates it 12/04. Notes was 20/10 at the time of her admission. Was unable to complete MRI due to pain. Notes vaginal bleeding, but unsure how much and believes it has only occurred for the last few days. Believes it is her menstrual period. Has not eaten for the past 5 days, but desires to try. Voiding without difficulty. Of note patient kept her face covered the entire encounter and had very limited interaction with provider. Patient reports: voiding normally, pain well controlled Objective - Vital Signs Latest vital signs: Vital Signs Temp Pulse Resp BP BP Pulse Ox 08/13/21 11:54 100 F H 99 H 20 119/71 100 08/13/21 08:00 98 08/13/21 07:05 101.7 F H 97 H 20 139/81 98 08/13/21 06:01 97 H 25 H 135/66 100 08/13/21 05:01 105 H 19 131/72 100 08/13/21 04:15 89 22 119/87 98 08/13/21 04:09 103 H 22 99 08/13/21 02:25 99.4 F 89 21 134/74 100 08/13/21 00:00 93 H 17 144/84 99 08/12/21 23:25 87 17 140/85 100 08/12/21 23:23 88 18 140/85 100 08/12/21 21:16 98.8 F 94 H 16 117/72 100 Intake and Output 08/12/21 08/13/21 08/13/21 23:59 07:59 15:59 Intake Total 20 0 Balance 20 0 Intake: IV 20 Right Antecubital 20 Oral 0 Other: Total, Intake Amount 0 Weight 54.431 kg - Exam Narrative Exam: Lying in bed with cover over face, no apparent distress Abdomen: Present: tenderness, mass Extremities: Present: normal - Labs Labs: Abnormal lab results 08/12/21 08/12/21 08/12/21 Range/Units 21:55 21:55 22:19 WBC 19.2 H (4.5-11.0) K/mm3 Hgb 9.5 L (10.1-14.3) gm/dl MCH 24 L (28-32) pg RDW 15.9 H (13.2-15.2) % Plt Count 501 H (140-440) K/mm3 Lymph % (Auto) 6.4 L (13.4-35.0) % [place] % (Auto) 7.8 H (0.0-7.3) % [place] # (Auto) 1.5 H (0.0-0.8) K/mm3 Seg Neutrophils % 85.5 H (40.0-70.0) % Seg Neutrophils # 16.5 H (1.8-7.7) K/mm3 PT 15.6 H (12.2-14.9) Sec. APTT 41.0 H (24.2-36.6) Sec. Sodium 128 L (137-145) mmol/L Chloride 91.7 L (98-107) mmol/L Carbon Dioxide 19 L (22-30) mmol/L Total Protein (6.3-8.2) g/dL Ur Specific [place] (1.003-1.030) Urine WBC (Auto) (0.0-6.0) /HPF Salicylates (2.8-20.0) mg/dL Acetaminophen (10.0-30.0) ug/mL 08/12/21 08/12/21 08/12/21 Range/Units 22:19 22:19 22:19 WBC (4.5-11.0) K/mm3 Hgb (10.1-14.3) gm/dl MCH (28-32) pg RDW (13.2-15.2) % Plt Count (140-440) K/mm3 Lymph % (Auto) (13.4-35.0) % [place] % (Auto) (0.0-7.3) % [place] # (Auto) (0.0-0.8) K/mm3 Seg Neutrophils % (40.0-70.0) % Seg Neutrophils # (1.8-7.7) K/mm3 PT (12.2-14.9) Sec. APTT (24.2-36.6) Sec. Sodium (137-145) mmol/L Chloride (98-107) mmol/L Carbon Dioxide (22-30) mmol/L Total Protein 8.7 H (6.3-8.2) g/dL Ur Specific [place] (1.003-1.030) Urine WBC (Auto) (0.0-6.0) /HPF Salicylates < 0.3 L (2.8-20.0) mg/dL Acetaminophen 5.0 L (10.0-30.0) ug/mL 08/13/21 Range/Units Unknown WBC (4.5-11.0) K/mm3 Hgb (10.1-14.3) gm/dl MCH (28-32) pg RDW (13.2-15.2) % Plt Count (140-440) K/mm3 Lymph % (Auto) (13.4-35.0) % [place] % (Auto) (0.0-7.3) % [place] # (Auto) (0.0-0.8) K/mm3 Seg Neutrophils % (40.0-70.0) % Seg Neutrophils # (1.8-7.7) K/mm3 PT (12.2-14.9) Sec. APTT (24.2-36.6) Sec. Sodium (137-145) mmol/L Chloride (98-107) mmol/L Carbon Dioxide (22-30) mmol/L Total Protein (6.3-8.2) g/dL Ur Specific [place] 1.045 H (1.003-1.030) Urine WBC (Auto) 24.0 H (0.0-6.0) /HPF Salicylates (2.8-20.0) mg/dL Acetaminophen (10.0-30.0) ug/mL
--- NOTE | 2021-08-13 15:24 | Magnetic Resonance Report ---
MRI PELVIS WITHOUT AND WITH CONTRAST INDICATION / CLINICAL INFORMATION: Uterine mass, please evaluate for leiomyosarcoma. TECHNIQUE: Multiplanar, multisequence series were obtained through the female pelvis. COMPARISON: CT of the abdomen and pelvis dated 08/12/2021 and 09/15/2019 and pelvic ultrasounds dated and 08/12/2021 FINDINGS: BOWEL: No significant abnormality. APPENDIX: No significant abnormality. PERITONEUM: Trace free fluid throughout the pelvis No free air. No fluid collection. LYMPH NODES: No significant adenopathy. ARTERIES: No significant abnormality. VEINS: No significant abnormality. URINARY BLADDER: No significant abnormality. REPRODUCTIVE ORGANS: Within the uterus there is a smoothly marginated slightly T2 hyperintense/T1 hyp ointense mass with no significant internal enhancement. This mass demonstrates a slight peripheral ri m of increased T2 signal. This mass measures approximately 11.3 x 11.6 x 15.4 cm. ADDITIONAL FINDINGS: None SKELETAL SYSTEM: No significant abnormality. IMPRESSION: 1. Large mass within the uterus as detailed above. As mentioned on previous imaging degenerating fibr oid is the leading differential given the smooth margins, lack of enhancement and the patient's age; however, given its rapid growth leiomyosarcoma remains within the differential. Signer Name: Rylan Mendez DO Signed: 08/13/2021 3:19 PM Workstation Name: [email or web address]
[2021-08-13] MEDS: ACETAMINOPHEN 325 MG TAB PO PRN (16:58)
[2021-08-14] MEDS: MORPHINE 2 MG/1 ML INJ IV PRN ×2 (01:17→04:47)
[2021-08-14] MEDS: ACETAMINOPHEN 325 MG TAB PO PRN (03:05)
[2021-08-14] MEDS: KETOROLAC 30 MG/1 ML INJ IV SCH (04:47)
--- NOTE | 2021-08-14 09:15 | Progress Note ---
Assessment and Plan DC to home ambulating toelrating general diet pain controled FUP one week need project manager interior design onc referral as outpatient Darlin Lepe MD Subjective - Subjective Date of service: 08/14/21 Principal diagnosis: abdominal pain, pelvic mass Objective - Vital Signs Latest vital signs: Vital Signs Temp Pulse Resp BP BP Pulse Ox 08/14/21 08:35 97.2 F L 73 20 117/67 99 08/14/21 05:19 98.2 F 85 16 107/52 100 08/14/21 04:47 18 08/14/21 03:05 18 08/14/21 01:17 18 08/14/21 00:34 98.3 F 101 H 18 120/64 98 08/13/21 20:28 18 08/13/21 20:19 98.3 F 94 H 18 110/76 100 08/13/21 15:25 99.3 F 94 H 20 109/55 100 08/13/21 11:54 100 F H 99 H 20 119/71 100 Intake and Output 08/13/21 08/14/21 08/14/21 23:59 07:59 15:59 Intake Total 440 840 320 Output Total 200 550 600 Balance 240 290 -280 Intake: Oral 440 320 Intake, Free Water 840 Output: Urine 200 550 600 Void 200 550 600 Other: Total, Intake Amount 120 320 Total, Output Amount 200 400 600 # Voids Void 2
--- NOTE | 2021-08-14 09:18 | Discharge Summary ---
Providers - Providers Date of Admission: 08/13/21 05:11 Date of discharge: 08/14/21 Attending physician: HERMAN SMART MD Primary care physician: GRANT MANAGER Hospitalization Reason for admission: other (large perlvic mass suspect degenerating fibroid) Condition at discharge: Stable Disposition: 30 STILL A PATIENT Plan - Provider Discharge Summary Activity: no sex for 6 weeks Diet: routine Additional instructions: [] Smoking cessation referral if applicable(refer to patient education folder for contact #) [] Refer to [facility] Booklet Call your doctor immediately for: * Fever > 100.5 * Heavy vaginal bleeding ( >1 pad per hour) * Severe persistent headache * Shortness of breath * Reddened, hot, painful area to leg or breast * Drainage or odor from incision. * Keep incision clean and dry at all times and follow doctor's instructions regarding bathing/showering - Follow up plan Follow up: PRIMARY CARE, [Primary Care Provider] - 7 Days HERMAN SMART MD [Staff Physician] - 7 Days
[2021-08-14 11:27] VITALS: BP 106/66
== END 2021-08-14 11:30 | disposition home or self-care (01) | DRG 760 ==
LOC: ED 20:38 → OB 08-13 05:11
PROVIDERS: ADMIT Obstetrics & Gynecology; ATTEND Obstetrics & Gynecology
DX: D25.9 Leiomyoma of uterus, unspecified (principal); N39.0 Urinary tract infection, site not specified; N85.2 Hypertrophy of uterus; R10.2 Pelvic and perineal pain; N85.8 Other specified noninflammatory disorders of uterus; N93.9 Abnormal uterine and vaginal bleeding, unspecified
CPT/HCPCS: 36415; 72197; 74177; 76705; 76856; 80048; 80076; 80307; 80320; 81001; 83690; 83735; 83880; 84484; 84702; 85025; 85610; 85730; 87040; 87086; G0378; Q0162; A9575; G0480; J0692; J1170; J1885; J2270; J2405; J7030; J7120; Q9967